=== PATIENT | male | born 1955 | race Caucasian/White ===

== ENCOUNTER → 2021-04-02 | Outpatient (CLI) | payer MEDICARE, SELFPAY ==
--- NOTE | 2021-04-02 | IMM_PTH ---
PATIENT: RAF SORIANO LOC: [facility] U#:[id number] AGE/SX: 66/M ROOM: RE04/02/[address]: Dr. Robby Barboza MD : 1955 BED: DIS: 04/02/2021 SPEC #: [id number] RECD: 04/04/21 14:33 STATUS: ALEXANDER REKatty #: [id number] MAU: 04/02/21 00:[address]: Robby Barboza DEPT: IMMUNOHISTOCHEMISTRY RECD BY: Aleksandra Funez Tissues: Prostate, NOS Procedures: 34BE12 (add) P40 (add) 34BE12 (initial) Comments: @ Specimen number changed from [id number] to [id number] @ on 04/04/21 at 1440 by MICHELLE. PHYSICIAN & INSTITUTION [place] [id number] SPECIMEN INFORMATION: Tissue Source: B. Prostate, right mid, F. Prostate, left base Clinical Info: Elevated PSA Specimen Number: [id number] B, F CPT code: 73370, 95891 x3 METHODOLOGY: Deparaffinized sections of prefer/formalin-fixed tissue or PAP/DQ stained slides are incubated with monoclonal/polyclonal antibodies/oligonucleotide probes. Localization is made via biotin free immunoperoxidase method. Appropriate controls are performed and reacted as expected. Results on target cell population are indicated in the following table: RESULTS: ANTIBODY / CLONE RESULT Block B P40 (BC28) positive 34BE12 (34BE12) positive Block F P40 (BC28) positive 34BE12 (34BE12) positive These tests were developed and their performance characteristics determined by [facility]. They may not have been cleared or approved by the U.S. Food and Drug Administration. The FDA has determined that such clearance or approval is not necessary. The above immunohistochemical/dualISH markers are ordered and reviewed by the Pathologist. INTERPRETATION: B. Right mid prostate, core biopsy: Benign prostatic tissue F. Left prostate base, core biopsy: Benign prostatic tissue AM:grace 04/05/21
--- NOTE | 2021-04-02 08:00 | PROSBIL_PTH ---
PATIENT: RAF SORIANO LOC: [facility] U#:[id number] AGE/SX: 66/M ROOM: RE04/02/[address]: Dr. Robby Barboza MD : 1955 BED: DIS: 04/02/2021 SPEC #: [id number] RECD: 04/02/21 17:39 STATUS: ALEXANDER RHIANNON #: [id number] MAU: 04/02/21 08:[address]: Robby Barboza DEPT: SURGICAL PATHOLOGY RECD BY: Candice Richardson Tissues: A - PROSTATE RIGHT B - PROSTATE RIGHT C - PROSTATE RIGHT D - PROSTATE LEFT E - PROSTATE LEFT F - PROSTATE LEFT Procedures: PROSTATE BX HEADER OPERATION: Prostate biopsy PRE-OP DIAGNOSIS: Elevated PSA TISSUE SUBMITTED: A-Right apex, B-Right mid, C-Right base, D-Left apex, E-Left mid, F-Left base MICROSCOPIC DIAGNOSIS A. Right prostate, apex, core biopsy: Benign prostatic tissue. B. Right prostate, mid, core biopsy: Glandular atrophy. C. Right prostate, base, core biopsy: Focal high-grade PIN. D. Left prostate, apex, core biopsy: Benign prostatic tissue. E. Left prostate, mid, core biopsy: Mild chronic inflammation. F. Left prostate, base, core biopsy: Glandular atrophy. COMMENT B & F. Immunohistochemistry ([id number]) supports the diagnosis. MICROSCOPIC DESCRIPTION Slides are reviewed. GROSS DESCRIPTION A - Received is one container designated prostate, right apex. The specimen consists of one elongated fragment of light perez-white soft tissue measuring 0.8cm in length and 0.1 cm in diameter. The specimen is totally submitted in one cassette. B - Received is one container designated prostate, right mid. The specimen consists of two elongated fragments of light perez-white soft tissue each measuring 1.0cm in length and 0.1 cm in diameter. The specimen is totally submitted in one cassette. C - Received is one container designated prostate, right base. The specimen consists of two elongated fragments of light perez-white soft tissue each measuring 1.0cm in length and 0.1 cm in diameter. The specimen is totally submitted in one cassette. D - Received is one container designated prostate, left apex. The specimen consists of one elongated fragment of light perez-white soft tissue measuring 0.5cm in length and 0.1 cm in diameter. The specimen is totally submitted in one cassette. E - Received is one container designated prostate, left mid. The specimen consists of two elongated fragments of light perez-white soft tissue each measuring 1.0cm in length and 0.1 cm in diameter. The specimen is totally submitted in one cassette. F - Received is one container designated prostate, left base. The specimen consists of two elongated fragments of light perez-white soft tissue each measuring 1.0cm in length and 0.1 cm in diameter. The specimen is totally submitted in one cassette. / AM:am 04/03/21 TC:5 CPT: 43756 x6
== END | disposition home or self-care (01) ==
PROVIDERS: Visit Provider Urology
DX: R97.20 Elevated prostate specific antigen [PSA] (principal)
CPT/HCPCS: 88305; 88341; 88342; G0416

== ENCOUNTER → 2022-10-10 | Outpatient (CLI) | payer BC, SELFPAY ==
[2022-10-10 11:22] LABS: PSA,Total- Diagnostic 5.41 ng/mL (0.0-4.0)
== END | disposition home or self-care (01) ==
LOC: LAB 10:23
PROVIDERS: PCP Family Medicine; Referring Provider Urology; Visit Provider Urology
DX: R97.20 Elevated prostate specific antigen [PSA] (principal)
CPT/HCPCS: 36415; 84153

== ENCOUNTER → 2023-10-19 | Outpatient (CLI) | payer MEDICARE, BC, SELFPAY ==
[2023-10-19 15:49] LABS: PSA,Total- Diagnostic 5.75 ng/mL (0.0-4.0)
== END | disposition home or self-care (01) ==
LOC: LAB 14:30
PROVIDERS: PCP Family Medicine; Referring Provider Urology; Visit Provider Urology
DX: N40.1 Benign prostatic hyperplasia with lower urinary tract symptoms (principal)
CPT/HCPCS: 36415; 84153

== ENCOUNTER → 2024-03-29 | Outpatient (CLI) | payer MEDICARE, BC, SELFPAY ==
[2024-03-29 13:53] LABS: Absolute Lymphocyte Count 1.59 X10^3/uL (0.83-4.51); Absolute Neutrophil Count 6.3 X10^3/uL (2.0-7.7); Basophil# 0.04 X10^3/uL; Basophil% 0.4 % (0-1); Eosinophil# 0.33 X10^3/uL; Eosinophils% 3.7 % (0-5); Hematocrit 42.7 % (40-54); Hemoglobin 13.7 g/dL (13.0-16.5); Lymphocyte # 1.59 X10^3/ul (0.83-4.51); Lymphocyte % 17.6 % (19-41); Mean Corp Hgb Conc 32.1 g/dL (32-36); Mean Corpuscular Hgb 27.3 pg (27.0-32.0); Mean Corpuscular Volume 85.2 fL (80-94); Mean Platelet Vol. 9.4 fl (6.2-12.0); Monocyte% 7.8 % (0-10); NRBC Flagged by Analyzer 0 % (0-5); Neutrophil # 6.31 X10^3/uL (2.7-7.7); Neutrophil % 69.9 % (47-70); Platelet Count 251 K/mm3 (150-450); RBC Distribution Width SD 39.8 fl (35.1-43.9); Red Blood Count 5.01 M/mm3 (4.6-6.2)
[2024-03-29 14:08] LABS: Prothrombin Time (Protime)PT. 13.5 SECONDS (11.7-14.9)
[2024-03-29 14:19] LABS: ALB/GLOB Ratio 0.9 RATIO (0.9-2.4); AST(SGOT) 9 U/L (15-37); Alanine Aminotransfer ALT/SGPT 27 U/L (16-61); Albumin, Serum 3.5 g/dL (3.2-5.0); Alkaline Phosphatase 134 U/L (45-117); Anion Gap 10 (5-15); BUN 32 mg/dL (7-18); Calcium,Total 9.7 mg/dL (8.5-10.1); Chloride 100 mmol/L (98-107); Creatinine, Serum 1.39 mg/dL (0.70-1.30); EST Glomerular Filtration Rate 54 mL/min (>60); Est Glom Filt Rate - Afr Amer 65 mL/min (>60); Globulin 3.8 g/dL (2.2-4.2); Glucose 433 mg/dL (74-106); Potassium 4.8 mmol/L (3.5-5.1); Protein, Total 7.3 g/dL (6.4-8.2); Sodium Level 133 mmol/L (136-145)
== END | disposition home or self-care (01) ==
LOC: LAB 13:15
PROVIDERS: PCP Family Medicine; Referring Provider Internal Medicine Gastroenterology; Visit Provider Internal Medicine Gastroenterology
DX: K80.50 Calculus of bile duct without cholangitis or cholecystitis without obstruction (principal); I25.10 Atherosclerotic heart disease of native coronary artery without angina pectoris
CPT/HCPCS: 36415; 80053; 85025; 85610

== ENCOUNTER 2024-05-31 13:36 | Day surgery (SDC) | payer MEDICARE, BC, SELFPAY ==
[2024-05-31] VITALS (12 sets, daily range): BP systolic 107–157; BP diastolic 56–86; PULSE 60–78; RESP 15–18; TEMP 36.1–36.8; O2SAT 92–97
[2024-05-31] MEDS: Lactated Ringers 1,000 ML 15 ML IV (14:02)
--- NOTE | 2024-05-31 14:07 | EKG12_ITS ---
Test Reason : PREOP Blood Pressure : */* mmHG Vent. Rate : 60 BPM Atrial Rate : 60 BPM P-R Int : 172 ms QRS Dur : 102 ms QT Int : 410 ms P-R-T Axes : -29 -15 6 degrees QTcB Int : 410 ms Atrial-paced rhythm Inferior infarct , age undetermined Abnormal ECG No previous ECGs available Confirmed by Leonardo Nieto ([id number]), communications editor HERBIE MAJANO ([id number]) on 06/02/2024 5:55:42 AM Referred By: Spencer Barajas Confirmed By: Leonardo Nieto
[2024-05-31 14:22] LABS: Bedside Glucose 221 mg/dL (74-106)
--- NOTE | 2024-05-31 14:51 | HP.PCM_ITS ---
History and Physical Date of Admission: 05/31/24 RAF SORIANO, is a 69 M who presents to the office today for initial consult. *BGI established pt reports that he is here to switch his care to Dr Jair. Pt reports that he is not currently experiencing any GI symptoms of concern. ROS Const Constitutional: No fatigue, fever(s) or weight change ENT ENT: No difficulty swallowing Gastro GI: Positive for diarrhea; No abdominal pain, belching, bloating, change in bowel habits, change in stool character, coffee ground emesis, constipation, cramping, heartburn, difficulty swallowing, feeling full early, excessive flatus, incontinent of stools, Vomiting blood/hematemesis, Blood in stool, loose stools, Black,tarry stools, nausea/dyspepsia, pain with swallowing, vomiting or other Musc Musculoskeletal: Positive for joint pain, back pain, stiffness and Arthritis Skin Skin: No yellowing of the eye or itchy eyes Psych Psychiatric: No anxiety and No depression Endo Endocrine: No fatigue or weight change Aller/Imm Allergy/Immunologic: No itchy eyes Misael/Lymp Hematologic/Lymphatic: Positive for easy bleeding and easy bruising Exam Const General: cooperative and comfortable Nutritional Appearance: average body habitus and well nourished HENMT Head: normal to inspection Ears: hearing grossly normal bilaterally Nose: external nose normal Face and sinus: normal facial exam Mouth: oral mucosae normal Throat: posterior oropharynx normal Eyes General: appearance normal, both eyes and all related structures Neck Neck: normal visual inspection Chest Chest palpation & inspection: normal inspection of the chest and normal palpation of entire chest wall Resp Effort & Inspection: normal respiratory effort Auscultation: Bilateral: Clear to Auscultation Cardio Palpation: normal PMI Rate: regular rate Rhythm: regular rhythm GI Inspection: normal to inspection Auscultation: normal bowel sounds Percussion: normal to percussion Palpation: no hepatosplenomegaly Skin General: no rashes or lesions noted Neuro General: patient alert Extrem General: normal to inspection Psych Affect: normal affect Assessment and Plan Assessment and Plan (1) Choledocholithiasis: Status: Acute Plan: 69-year-old gentleman with past medical history of diabetes mellitus complicated by gastroesophageal reflux disease on Protonix 40 mg daily, multiple episodes of choledocholithiasis status post multiple ERCPs on ursodiol 500 mg p.o. twice daily. He is never had a gastric emptying study. He says that his blood sugars have been better controlled. He also has extensive cardiovascular disease status opposed to myocardial infarctions and possible peripheral vascular disease. He is not have any abdominal pain at this time. He is not any cramping. He is not any chest pain or shortness of breath. I question why he was on high-dose ursodiol. Even though he has had multiple episodes of choledoc holithiasis there is no indication for him to be on ursodiol for stone resolution. Obviously since he has had this done multiple times changing his bile from lithogenic bile to a more water-soluble bile has not been working. We got imaging of his hepatobiliary system and it does show choledocholithiasis so we will schedule an ERCP. (2) Gastroesophageal reflux disease: Status: Acute (3) Personal history of colonic polyps: Status: Acute Medications: Discontinued ursodiol Discontinued Reason: Pt no longer taking 500 mg PO BID I have examined the patient and the H&P has been reviewed. There are no clinical changes since date of exam.
--- NOTE | 2024-05-31 15:09 | PCM.PRE.AN2 ---
ASA Classification* ASA Classification ASA Classification: 3 Assessment & Plan Anesthesia* Anesthesia Assessment Anesthesia Assessment: Discussed sedation and/or anesthesia options, risks, benefits, and alternatives with patient/parents/legal guardian/POA. Questions invited. The patient/parents/legal guardian/POA seems to understand and agrees to proceed with anesthesia plan. Reviewed the physical assessment, medical history, allergy history and patient home medications list prior to surgery/procedure/anesthetic and documented any changes. Performed airway and anesthesia risk assessments. Anesthesia Type Anesthesia Type: General History Source History Obtained from:: Patient and Chart Anesthesia Focused Assessment* Temperature: 98.2 F Pulse Rate: 67 Blood Pressure: 129/83 Respiratory Rate: 16 Pulse Ox: 94 Oxygen Delivery Method: Room Air Airway Assessment Mouth opens: >3 cm Mallampati Score: III Teeth Condition: Intact Neck Range of motion (ROM): Limited ROM Focused Labs Anesthesia Preop lab: CBC WBC 9.0 K/mm3 (4.4-11.0) 03/29/24 13:20 RBC 5.01 M/mm3 (4.6-6.2) 03/29/24 13:20 Hgb 13.7 g/dL (13.0-16.5) 03/29/24 13:20 Hct 42.7 % (40-54) 03/29/24 13:20 Plt Count 251 K/mm3 (150-450) 03/29/24 13:20 CHEMISTRY Potassium 4.8 mmol/L (3.5-5.1) 03/29/24 13:20 Sodium 133 mmol/L (136-145) L 03/29/24 13:20 BUN 32 mg/dL (7-18) H 03/29/24 13:20 Creatinine 1.39 mg/dL (0.70-1.30) H 03/29/24 13:20 Glucose 433 mg/dL (74-106) H 03/29/24 13:20 POC Glucose 221 mg/dL (74-106) H 05/31/24 13:57 COAG PT 13.5 SECONDS (11.7-14.9) 03/29/24 13:20 Pre-Assessment Diagnosis/Proposed Procedure Planned Operative Procedure(s): ERCP Anesthesia History Anesthesia History - casting machine operator automatic: Anesthesia History - casting machine operator automatic Hx Hospitalization Yes: INFECTION/IV 05/27/24 08:37 ANTIBIOTICS Any Problems With Anesthesia No 05/27/24 08:37 Cholinesterase deficiency No 05/27/24 08:37 You/Your Family Experience No 05/27/24 08:37 fever (hyperthermia) with Relationship Recent Exposure to Contagious No 05/31/24 13:58 Disease Does patient have nerve No 05/27/24 08:37 stimulator Patient instructed to have device shut off --Does patient have Pacemaker No 05/31/24 13:58 or ICD? When Was Last Pacemaker Check QUESTION #4 FULL TEXT: You/Your Family Experience fever (hyperthermia) with Anesthesia Last Oral Intake Last Oral intake: Last Oral Intake NPO since Meds taken in AM with sips of water? Meds patient instructed to take am of surgery Any additional information?: Yes NPO since: 12:00 (Clear lemonade) PONV PONV - casting machine operator automatic: PONV - casting machine operator automatic Female No 05/27/24 08:37 HX of Motion Sickness No 05/27/24 08:37 HX of N/V After Surgery No 05/27/24 08:37 Non-Smoker Yes 05/27/24 08:37 Duration of Surgery greater Yes 05/27/24 08:37 than 60 minutes Number of Risk Factors 2 05/27/24 08:37 PONV Score Moderate Risk 05/27/24 08:37 Height & Weight Height & Weight: Anesthesia: Height & Weight Height 5 ft 7 in 05/31/24 13:58 Weight: 87.09 kg 05/31/24 13:58 Body Mass Index (BMI) 30.0 05/31/24 13:58 Respiratory Assessment Respiratory Assessment - casting machine operator automatic: Respiratory Tract Infection Hx - casting machine operator automatic Hx Respiratory Tract Infection No: RUNNY NOSE 05/27/24 08:37 STOP Sleep Apnea STOP Sleep Apnea - casting machine operator automatic: STOP Sleep Apnea - casting machine operator automatic Hx Hypertension Yes: CONTROLLED WITH MEDS 05/27/24 08:37 Hx Sleep Apnea Yes 05/27/24 08:37 CPAP Yes: NONCOMPLIANT 05/27/24 08:37 BIPAP No 05/27/24 08:37 Do you snore loudly (louder than talking or can be heard Do you often feel tired/ fatigued/ sleepy during daytime? Has anyone observed you stop breathing during sleep? STOP Results Positive 05/27/24 08:37 QUESTION #5 FULL TEXT : Do you snore loudly (louder than talking or can be heard through closed doors)? Tobacco Use History Tobacco Use History - casting machine operator automatic: Tobacco Use History - casting machine operator automatic Tobacco Use Smoking Status Former smoker 05/27/24 08:37 Hx Tobacco Use Yes 05/27/24 08:37 Years Smoking Packs Smoked per Day Smoking Cessation Date was Yes - quit smoking within 15 05/27/24 08:37 within the last 15 years years Hx Smoking Cessation Date 07/27/13 05/27/24 08:37 Hx Smoking Cessation Counseling Hematologic Medial History Hematologic Hx - casting machine operator automatic: Hematologic Medical Hx - automatic vulcanizing lead operator Hx of Blood Transfusion No 05/27/24 08:37 Hx of Transfusion in last 3 No 05/27/24 08:37 Months Date of Last Transfusion (if within last 3 months) Ever experience any problems No 05/27/24 08:37 with transfusion(s)? Specify any problems Hx of Preganancy in last 3 N/A 05/27/24 08:37 Months Nurse Filling Out Transfusion DSCHRIBER 05/27/24 08:37 & Questions: Date: 05/27/24 05/27/24 08:37 Time: 08:39 05/27/24 08:37 Patient unable to answer at this time (ie. confused, unrespo /Reproduction History /Reproductive History - casting machine operator automatic: /Reproductive Hx- casting machine operator automatic Hx Now No 05/27/24 08:37 Gestational Age (in weeks): EDC: Hx Hx Para Hx Section SAB No 05/27/24 08:37 Active Medications Active Medications: Current Medications Generic Name Dose Route Start Last Admin Trade Name Freq PRN Reason Stop Dose Admin Lactated Ringer's 1,000 mls @ 15 mls/hr 05/31/24 13:45 05/31/24 14:02 IV 06/06/24 03:04 15 mls/hr .Q48H [facility] Administration Protocol PFS Medical History (Updated 05/27/24 @ 09:09 by Melissa Cortez) Wears hearing aid Wears glasses Insulin dependent diabetes mellitus Bladder disease High cholesterol Back pain Prostate disease Dietary restriction History of ulceration Gastric reflux Former smoker CPAP (continuous positive airway pressure) dependence Leg cramps History of pain when walking History of CHF (congestive heart failure) History of heart attack Hypertension History of stress test Cardiology follow-up encounter History of pacemaker Choledocholithiasis Home Medications ?Medication ?Instructions ?Recorded ?Last Taken ?Type acetaminophen 650 mg 650 mg PO Q8H PRN pain 03/22/24 Unknown History tablet,extended release atorvastatin 40 mg tablet 40 mg PO QHS 03/22/24 Unknown History dapagliflozin propanediol 10 mg 10 mg PO DAILY 03/22/24 05/30/24 History tablet (Farxiga) famotidine 20 mg tablet 20 mg PO QHS 03/22/24 Unknown History finasteride 5 mg tablet 5 mg PO DAILY 03/22/24 05/31/24 History furosemide 20 mg tablet 20 mg PO MOWEFR 03/22/24 Unknown History insulin glargine 100 unit/mL 60 unit subcut QPM 03/22/24 Unknown History subcutaneous solution lisinopril 10 mg tablet 10 mg PO DAILY 03/22/24 05/31/24 History magnesium oxide 800 mg PO BID 03/22/24 Unknown History metformin 1,000 mg tablet 1,000 mg PO BID 03/22/24 Unknown History metoprolol succinate 50 mg 50 mg PO DAILY 03/22/24 05/31/24 History tablet,extended release 24 hr pantoprazole 40 mg tablet,delayed 40 mg PO DAILY 03/22/24 05/31/24 History release spironolactone 25 mg tablet 25 mg PO DAILY 03/22/24 Unknown History tamsulosin 0.4 mg capsule 0.4 mg PO QHS 03/22/24 05/31/24 History clopidogrel 75 mg tablet 75 mg PO DAILY 05/27/24 05/24/24 History Allergy/AdvReac Type Severity Reaction Status Date / Time amoxicillin Allergy Intermediate Rash Verified 05/31/24 13:52 clavulanic acid (From Allergy Intermediate Rash Verified 05/31/24 13:52 Augmentin) Surgical History (Updated 05/27/24 @ 09:09 by Melissa Cortez) History of appendectomy Hx laparoscopic cholecystectomy History of esophagogastroduodenoscopy (EGD) Hx of colonoscopy History of coronary artery stent placement Social History Smoking Status: Former smoker Review of Systems (Anesthesia) ROS Narrative System reviewed and no additional complaints, except as documented.
--- NOTE | 2024-05-31 15:45 | RAD_ITS ---
ERCP INDICATION: Abdominal pain. Fluoroscopy time: 1:13 minutes Images obtained: 7 FINDINGS: 1.: 13 minutes of fluoroscopy the abdomen was utilized operating during ERCP and 7 images are somewhat limited for interpretation. The patient is status post cholecystectomy. Balloon sphincterotomy was performed. RAD/ERCP Biliary/Pancreas IMPRESSION: Fluoroscopy during ERCP. Electronically Signed: Hua Abreu MD at 12:35 EST ,
--- NOTE | 2024-05-31 16:10 | PCM.POST.ANE ---
Anesthesia: Postop Eval I Current Vital Signs Temperature: 97 F Pulse Rate: 66 Blood Pressure: 151/80 Respiratory Rate: 18 Pulse Ox: 97 Oxygen Delivery Method: Room Air Assessment Airway patent: Yes Spontaneous unlabored respirations: Yes Mental status: Awake and Calm nausea: No Vomiting: No Anesthesia Complication: No Fluid Hydration Crystalloid volume administer (ml): 800 Total IV fluid infused: 800 Progress Note Anesthesia document: Postop Eval 1 completed: Yes
--- NOTE | 2024-05-31 16:17 | OP.CCLET_ITS ---
05/31/2024 Spencer Barajas Re : ERCP procedure for Rafael Tavares Dear Karl This procedure was performed on Friday, May 31, 2024. My impressions and recommendations are as follows: Impressions : - Choledocholithiasis was found. Complete removal was accomplished by biliary sphincterotomy and balloon extraction. - A biliary sphincterotomy was performed. - The biliary tree was swept. Recommendations : My findings are described in the full procedure note, which is enclosed. If I can be of further assistance, please feel free to contact me at . Sincerely, Yogesh Adam, 05/31/2024 4:16:38 PM This report has been signed electronically.
--- NOTE | 2024-05-31 16:17 | OP.ERCP_ITS ---
Patient Name: Rafael Tavares Procedure Date: 05/31/2024 2:55 PM Date of : 1955 Age: 69 Procedure: ERCP Indications: Bile duct stone(s), Abdominal pain of suspected biliary origin Providers: Yogesh Adam DO Referring MD: Spencer Barajas Medicines: General Anesthesia Patient Profile: This is a 69 year old male. Refer to note in patient chart for documentation of history and physical. Patient has symptoms of acute right upper quadrant abdominal pain and acute jaundice. Complications: No immediate complications. Procedure: Pre-Anesthesia Assessment: - Prior to the procedure, a History and Physical was performed, and patient medications and allergies were reviewed. The patient is competent. The risks and benefits of the procedure and the sedation options and risks were discussed with the patient. All questions were answered and informed consent was obtained. Patient identification and proposed procedure were verified in the pre-procedure area. Mental Status Examination: alert and oriented. Airway Examination: normal oropharyngeal airway and neck mobility. Respiratory Examination: clear to auscultation. CV Examination: normal. Prophylactic Antibiotics: The patient does not require prophylactic antibiotics. Prior Anticoagulants: The patient has taken no anticoagulant or antiplatelet agents except for NSAID medication. ASA Grade Assessment: III - A patient with severe systemic disease. After reviewing the risks and benefits, the patient was deemed in satisfactory condition to undergo the procedure. The anesthesia plan was to use general anesthesia. Immediately prior to administration of medications, the patient was re-assessed for adequacy to receive sedatives. The heart rate, respiratory rate, oxygen saturations, blood pressure, adequacy of pulmonary ventilation, and response to care were monitored throughout the procedure. The physical status of the patient was re-assessed after the procedure. After obtaining informed consent, the scope was passed under direct vision. Throughout the procedure, the patient's blood pressure, pulse, and oxygen saturations were monitored continuously. The Duodenoscope was introduced through the mouth, and advanced to the duodenum and used to inject contrast into the bile duct. The ERCP was accomplished without difficulty. The patient tolerated the procedure well. Scope In: 3:42:57 PM Scope Out: 3:54:18 PM Total Procedure Duration Time 0 hours 11 minutes 21 seconds Findings: The balloon sander film was normal. The esophagus was successfully intubated under direct vision. The scope was advanced to a normal major papilla in the descending duodenum without detailed examination of the pharynx, larynx and associated structures, and upper GI tract. The upper GI tract was grossly normal. A long 0.025 inch Jagwire was passed into the biliary tree. The short-nosed traction sphincterotome was passed over the guidewire and the bile duct was then deeply cannulated. Contrast was injected. I personally interpreted the bile duct images. There was brisk flow of contrast through the ducts. Image quality was adequate. Contrast extended to the entire biliary tree. Opacification of the entire opacified area, left main hepatic duct, right main hepatic duct and entire biliary tree was successful. The maximum diameter of the ducts was 10 mm. The main bile duct, left main hepatic duct and right main hepatic duct contained two stones, the largest of which was 6 mm in diameter. A 5 mm biliary sphincterotomy was made with a braided traction (standard) sphincterotome using ERBE electrocautery. There was no post-sphincterotomy bleeding. The biliary tree was swept with a 12 mm balloon starting at the bifurcation, left main hepatic duct and right intrahepatic duct(s). Sludge was swept from the duct. All stones were removed. Impression: - Choledocholithiasis was found. Complete removal was accomplished by biliary sphincterotomy and balloon extraction. - A biliary sphincterotomy was performed. - The biliary tree was swept. Procedure Code(s): --- Professional --- 49112, Endoscopic retrograde cholangiopancreatography (ERCP); with removal of calculi/debris from biliary/pancreatic duct(s) 26977, Endoscopic retrograde cholangiopancreatography (ERCP); with sphincterotomy/papillotomy 24639, 26, Endoscopic catheterization of the biliary ductal system, radiological supervision and interpretation CPT copyright 2021 [employer]. All rights reserved. The codes documented in this report are preliminary and upon certified procedural coder review may be revised to meet current compliance requirements. Yogesh Adam DO 05/31/2024 4:16:38 PM This report has been signed electronically. Number of Addenda: 0 Note Initiated On: 05/31/2024 2:55 PM
--- NOTE | 2024-05-31 16:28 | POSTOPAN2_ITS ---
Anesthesia Postop Eval I Sum Postop Eval Completion status Anesthesia document: Postop Eval 1 completed: Yes Anesthesia Postop Eval I Summary Anesthesia Postop Eval I Summary: Anesthesia Postop Eval I: Assessment Summary Airway patent Yes 05/31/24 16:13 ENGRAVING PLATE [email or web address].[email or web address] Spontaneous unlabored Yes 05/31/24 16:13 ENGRAVING PLATE [email or web address].NEO respirations Mental status Awake,Calm 05/31/24 16:13 ENGRAVING PLATE [email or web address].NEO nausea No 05/31/24 16:13 ENGRAVING PLATE [email or web address].NEO Vomiting No 05/31/24 16:13 ENGRAVING PLATE [email or web address].NEO Anesthesia Postop Eval I: Fluid Summary Crystalloid volume administer 800 05/31/24 16:13 ENGRAVING PLATE [email or web address].[email or web address] (ml) Colloids volume administered ( ml) Blood Product volume administered (ml) Total IV fluid infused 800 05/31/24 16:13 ENGRAVING PLATE [email or web address].NEO Anesthesia Postop Eval I: Summary Notes Anesthesia Complication No 05/31/24 16:13 ENGRAVING PLATE [email or web address].NEO Anesthesia Complication Comment: Post-operative progress note Anesthesia: Postop Eval II Evaluation Mental status: Awake Pain Level: 2 nausea: No Vomiting: No
--- NOTE | 2024-05-31 16:28 | PCM.POSTANE2 ---
Anesthesia Postop Eval I Sum Postop Eval Completion status Anesthesia document: Postop Eval 1 completed: Yes Anesthesia Postop Eval I Summary Anesthesia Postop Eval I Summary: Anesthesia Postop Eval I: Assessment Summary Airway patent Yes 05/31/24 16:13 PSYCHIATRIC NURSING AIDE.[email or web address] Spontaneous unlabored Yes 05/31/24 16:13 PSYCHIATRIC NURSING AIDE.NEO respirations Mental status Awake,Calm 05/31/24 16:13 PSYCHIATRIC NURSING AIDE.NEO nausea No 05/31/24 16:13 PSYCHIATRIC NURSING AIDE.NEO Vomiting No 05/31/24 16:13 PSYCHIATRIC NURSING AIDE.NEO Anesthesia Postop Eval I: Fluid Summary Crystalloid volume administer 800 05/31/24 16:13 PSYCHIATRIC NURSING AIDE.JEREMIAHOBY (ml) Colloids volume administered ( ml) Blood Product volume administered (ml) Total IV fluid infused 800 05/31/24 16:13 PSYCHIATRIC NURSING AIDE.NEO Anesthesia Postop Eval I: Summary Notes Anesthesia Complication No 05/31/24 16:13 PSYCHIATRIC NURSING AIDE.NEO Anesthesia Complication Comment: Post-operative progress note Anesthesia: Postop Eval II Evaluation Mental status: Awake Pain Level: 2 nausea: No Vomiting: No
[2024-05-31] MEDS: Lactated Ringers 1,000 ML 999 ML IV (17:31)
[2024-05-31] MEDS: proCHLORPERazine 10 MG/2 ML Vial IV (17:45)
== END 2024-05-31 18:30 | disposition home or self-care (01) ==
LOC: EN 13:37 → AC 13:38
PROVIDERS: PCP Family Medicine; Referring Provider Family Medicine; Visit Provider Internal Medicine Gastroenterology
PROC: (CPT 43260; principal; 2024-05-31 14:25)
DX: K80.50 Calculus of bile duct without cholangitis or cholecystitis without obstruction (principal); E11.9 Type 2 diabetes mellitus without complications; Z79.4 Long term (current) use of insulin; K21.9 Gastro-esophageal reflux disease without esophagitis; Z79.899 Other long term (current) drug therapy; Z86.0100 Personal history of colon polyps, unspecified; Z79.84 Long term (current) use of oral hypoglycemic drugs; E78.00 Pure hypercholesterolemia, unspecified; I10 Essential (primary) hypertension
CPT/HCPCS: 43262; 43264; 74330; 76000; 82962; 93005; J7120; A4216; J2405